=== PATIENT | female | born 2000 | race Caucasian/White ===

== ENCOUNTER 2024-09-26 10:26 | Outpatient (REF) | payer MEDICAID, SELFPAY ==
[2024-09-26 11:11] LABS: MANUAL DIFF FLAG NO
[2024-09-26 11:37] LABS: Basophils Absolute Auto 0.1 X10*3/uL (0.0-0.2); Basophils Percent Auto 0.6 % (0-2); Eosinophils Absolute Auto 0.2 X10*3/uL (0.0-0.4); Eosinophils Percent Auto 2.6 % (0-4); Estimated Average Glucose 105 mg/dL; Hematocrit 41.8 % (37.0-47.0); Hemoglobin 13.8 g/dl (12.0-16.0); Hemoglobin A1c % 5.3 % (<6.0); Imm Gran Abs Auto 0.02 X10*3/uL (0.00-0.03); Imm Gran Pct Auto 0.2 % (0.0-0.4); Lymphocytes Percent Auto 23.4 % (20-40); Mean Corpuscular Hemoglobin 30.9 pg (27.0-33.0); Mean Corpuscular Volume 93.7 fL (80.0-98.0); Mean Platelet Volume 10.4 fL (9.4-12.3); Monocytes Absolute Auto 0.5 X10*3/uL (0.1-1.2); Monocytes Percent Auto 5.6 % (2-11); Neutrophils Absolute Auto 5.7 x10*3/uL (2.0-8.3); Neutrophils Percent Auto 67.6 % (45-73); Platelet Count 343 X10*3/uL (160-400); Red Blood Count 4.46 X10*6/uL (4.20-5.50); Red Cell Distribution Width 12.2 % (11.0-16.0); Total Hemoglobin (HGBA1C) 3625.3294 umol/L; White Blood Count 8.4 X10*3/uL (4.8-10.8)
[2024-09-26 12:11] LABS: Cholesterol 207 mg/dL (<200); HDL Cholesterol 67 mg/dL (>40); LDL Cholesterol Calculated 126 mg/dL (<100); Triglycerides 73 mg/dL (<150)
[2024-09-26 12:24] LABS: HBc Num1 0.06 S/CO (0.00-0.79); HBsAGNum1 0.32 S/CO (0.00-0.99); HIV AB/AG Nonreactive (Nonreactive); HIV Num 1 0.05 S/CO (0.00-0.99); Hepatitis B Core Antibody Nonreactive (Nonreactive); Hepatitis B Surface Antigen Negative (Negative); ~HepC Num1 0.11 S/CO (0.00-0.79); ~Hepatitis B Surface Antibody NONREACTIVE (Nonreactive); ~Hepatitis C Antibody Nonreactive (Nonreactive)
[2024-09-26 12:41] LABS: TSH reflex Free T4 1.27 uIU/mL (0.32-4.0)
== END 2024-09-26 10:27 | disposition home or self-care (01) ==
LOC: HO.HHCL 10:26
PROVIDERS: Visit Provider Nurse Practitioner
DX: N92.0 Excessive and frequent menstruation with regular cycle (principal); E66.811 Obesity, class 1; E66.09 Other obesity due to excess calories; Z68.32 Body mass index [BMI] 32.0-32.9, adult
CPT/HCPCS: 36415; 80061; 83036; 84443; 85025; 86704; 86706; 86803; 87340; 87389

== ENCOUNTER 2025-06-15 10:19 | Outpatient (REF) | payer MEDICAID, SELFPAY ==
--- NOTE | ~2025-06-15 | XR_ITS ---
EXAMINATION: XR THORACIC SPINE CLINICAL INFORMATION: pain COMPARISON: Correlated to chest x-ray dated December 23, 2013 TECHNIQUE: AP lateral and swimmer's projection. FINDINGS: Mild S-shaped curvature. No acute cortical disruption or malalignment. No lytic or blastic lesions. XR/XR thoracic spine 2V IMPRESSION: Mild scoliosis. Electronically signed by: Gerhard Tineo MD 06/15/2025 10:54 AM [id number]
== END 2025-06-15 10:20 | disposition home or self-care (01) ==
LOC: HO.HHCX 10:19
PROVIDERS: PCP Nurse Practitioner; Visit Provider Nurse Practitioner
DX: G89.29 Other chronic pain (principal); M54.6 Pain in thoracic spine
CPT/HCPCS: 72070

== ENCOUNTER → 2025-06-15 10:28 | Outpatient (BNV) | payer MEDICAID, SELFPAY | PROVIDERS: PCP Nurse Practitioner; Visit Provider Radiology Diagnostic Radiology | DX: M41.84 Other forms of scoliosis, thoracic region (principal) | CPT/HCPCS: 72070 ==